=== PATIENT | female | born 1995 | race Asian ===

== ENCOUNTER 2018-01-29 22:34 | Emergency (ER) | payer OTHER ==
[~2018-01-29] VITALS: Ht 154.9 cm; Wt 51.4 kg
[2018-01-29 22:46] VITALS: Ht 154.9 cm; Wt 51.4 kg
[2018-01-30 01:35] LABS: BASOPHIL % 0 % (0-2); PLATELET COUNT 248 x10^3mcL (130-400); RED CELL DISTRIBUTION WIDTH 13.8 % (11.5-14.5)
[2018-01-30 01:46] LABS: UA SPECIFIC GRAVITY 1.025 (1.005-1.035); microscopic required? YES; urine erythrocyte NEGATIVE (NEGATIVE)
[2018-01-30 01:50] VITALS: BP 107/54
[2018-01-30 03:09] LABS: CALCIUM 8.4 mg/dL (8.5-10.1); CARBON DIOXIDE 22.2 mmol/L (21-32); CHLORIDE SERUM 104 mmol/L (98-107); CREATININE SERUM 0.7 mg/dL (0.6-1.0); GFR1 > 60 mL/min; GLUCOSE SERUM 94 mg/dL (74-106); POTASSIUM SERUM 3.3 mmol/L (3.5-5.1); SODIUM SERUM 140 mmol/L (136-145)
[2018-01-30 03:13] LABS: ALBUMIN 3.7 g/dL (3.4-5.0); ALKALINE PHOSPHATASE 64 U/L (46-116); ALT/SGPT 13 U/L (14-59); AST/SGOT 20 U/L (15-37); BILIRUBIN TOTAL 0.46 mg/dL (0.20-1.00); TOTAL PROTEIN, SERUM 7.4 g/dL (6.4-8.2)
== END 2018-01-30 02:12 | disposition home or self-care (01) ==
LOC: ED 22:34
PROVIDERS: Emergency Medicine
DX: B34.9 Viral infection, unspecified (principal); K21.9 Gastro-esophageal reflux disease without esophagitis; R30.0 Dysuria
CPT/HCPCS: 83880; J1885; J2405; J7030; Q0092